=== PATIENT | male | born 1975 | race Caucasian/White ===

== ENCOUNTER 2018-01-28 09:43 | Emergency (ER) | payer MEDICAID ==
[~2018-01-28] VITALS: Ht 167.6 cm; Wt 79.4 kg
[2018-01-28 09:50] VITALS: Ht 167.6 cm; Wt 79.4 kg
[2018-01-28 11:20] VITALS: BP 115/71
== END 2018-01-28 11:20 | disposition home or self-care (01) ==
LOC: ED 09:43
DX: J02.9 Acute pharyngitis, unspecified (principal)

== ENCOUNTER 2018-08-10 13:05 | Emergency (ER) | payer SELFPAY ==
[~2018-08-10] VITALS: Ht 160 cm; Wt 76.2 kg
[2018-08-10 13:08] VITALS: Ht 160 cm; Wt 76.2 kg
[2018-08-10 15:20] VITALS: BP 122/87
== END 2018-08-10 15:20 | disposition home or self-care (01) ==
LOC: ED 13:05
PROC: 3E033NZ Introduction of Analgesics, Hypnotics, Sedatives into Peripheral Vein, Percutaneous Approach (ICD-10-PCS; principal; 2018-08-10)
PROC: 3E033GC Introduction of Other Therapeutic Substance into Peripheral Vein, Percutaneous Approach (ICD-10-PCS; 2018-08-10)
DX: R51 Headache (principal)
CPT/HCPCS: J1885; J7030

== ENCOUNTER 2020-07-17 09:48 | Emergency (ER) | payer MEDICAID ==
[~2020-07-17] VITALS: Ht 170.2 cm; Wt 83.0 kg
[2020-07-17 10:01] VITALS: Ht 170.2 cm; Wt 83.0 kg
[2020-07-17 11:09] LABS: BASOPHIL % 0.9 % (0-2); PLATELET COUNT 292 x10^3mcL (130-400)
[2020-07-17 11:19] LABS: CALCIUM 8.6 mg/dL (8.5-10.1); CARBON DIOXIDE 29.2 mmol/L (21-32); CHLORIDE SERUM 105 mmol/L (98-107); GFR1 > 60 mL/min; GLUCOSE SERUM 105 mg/dL (74-106); POTASSIUM SERUM 3.3 mmol/L (3.5-5.1); SODIUM SERUM 140 mmol/L (136-145)
[2020-07-17 11:23] LABS: ALBUMIN 3.7 g/dL (3.4-5.0); ALKALINE PHOSPHATASE 153 U/L (46-116); ALT/SGPT 127 U/L (16-63); AST/SGOT 52 U/L (15-37); BILIRUBIN TOTAL 0.4 mg/dL (0.20-1.00); LIPASE 214 IU/L (73-393); TOTAL PROTEIN, SERUM 7.5 g/dL (6.4-8.2)
[2020-07-17 12:04] VITALS: BP 135/92
== END 2020-07-17 12:04 | disposition home or self-care (01) ==
LOC: ED 09:48
PROVIDERS: Emergency Medicine
DX: K59.00 Constipation, unspecified (principal); E87.6 Hypokalemia; Z90.49 Acquired absence of other specified parts of digestive tract